=== PATIENT | female | born 2000 | race Caucasian/White ===

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

== ENCOUNTER 2019-07-31 14:27 | Emergency (ER) | payer BC, MEDICAID, OTHER ==
--- NOTE | 2019-07-31 15:04 | ER Document Report ---
ED Medical Screen (RME) - General Chief Complaint: Vaginal Bleeding Stated Complaint: VAGINAL BLEEDING Time Seen by Provider: 07/31/19 15:02 Primary Care Provider: AURELIANO LATHAM NP [Primary Care Provider] - Follow up as needed Mode of Arrival: Ambulatory Information source: Patient Notes: 18-year-old female presented to ED for complaint of vaginal bleeding. She stat es that she is also having some pelvic pain on right side. She states that. He is due in about a week. She states she does have a Nexplanon. She is concerned because the pain was on the one side. Patient is alert oriented respirations regular and unlabored speaking in full sentences. I have greeted and performed a rapid initial assessment of this patient. A comprehensive ED assessment and evaluation of the patient, analysis of test results and completion of medical decision making process will be conducted by an additional ED providers. TRAVEL OUTSIDE OF THE [place] IN LAST 30 DAYS: No - Related Data Allergies/Adverse Reactions: No Known Allergies Allergy (Verified 07/31/19 14:38) Past Medical History Psychiatric Medical History: Reports: Hx Attention Deficit Hyperactivity Disorder - Immunizations Immunizations up to date: Yes Hx Diphtheria, Pertussis, Tetanus Vaccination: Yes Doctor's Discharge - Discharge Referrals: AURELIANO LATHAM NP [Primary Care Provider] - Follow up as needed
[2019-07-31 15:05] VITALS: BP 139/79
--- NOTE | 2019-07-31 17:18 | RADIOLOGY REPORT (SQ) ---
EXAM DESCRIPTION: U/S NON-OB PELVIS TV W/O DOP COMPLETED DATE/TIME: 07/31/2019 4:58 pm REASON FOR STUDY: Right pelvic pain vaginal bleeding COMPARISON: None. TECHNIQUE: Dynamic and static grayscale images acquired of the pelvis via transvaginal approach and recorded on PACS. Additional selected color Doppler and spectral images recorded. LIMITATIONS: None. FINDINGS: UTERUS: Contour normal. No mass. ENDOMETRIAL STRIPE: No focal or generalized thickening. No masses. CERVIX: 2.1 cm. There is some fluid in the endocervical canal. RIGHT OVARY AND DOPPLER: Normal size. No worrisome masses. Normal arterial vascular flow without evid ence for torsion. LEFT OVARY AND DOPPLER: Ovary not seen. FREE FLUID: None noted. OTHER: No other significant finding. MEASUREMENTS: UTERUS: 5.4 x 2.5 cm. ENDOMETRIAL STRIPE: 4 mm. RIGHT OVARY: 2.7 x 2.2 x 2.2 cm. LEFT OVARY: Ovary not seen. IMPRESSION: NORMAL TRANSVAGINAL PELVIC ULTRASOUND. TECHNICAL DOCUMENTATION: JOB ID: [id number]- All Rights Reserved Rev-04/04 Reading location - IP/workstation name: [email or web address]
[2019-07-31 17:51] LABS: ABSOLUTE EOSINOPHILS # (AUTO) 0.2 10^3/uL (0.0-0.6); ABSOLUTE LYMPHOCYTES (AUTO) 4.7 10^3/uL (0.5-4.7); BASOPHILS % (AUTO) 0.4 % (0-2); EOSINOPHILS % (AUTO) 1.8 % (0-6); HEMATOCRIT 43.7 % (36.0-47.0); HEMOGLOBIN 14.4 g/dL (12.0-15.5); LYMPHOCYTES % (AUTO) 47.2 % (13-45); MEAN CORPUSCULAR HEMOGLOBIN 24.7 pg (27.0-33.4); MEAN CORPUSCULAR VOLUME 75 fl (80-97); MONOCYTES % (AUTO) 9.9 % (3-13); PLATELET COUNT 304 10^3/uL (150-450); RED BLOOD COUNT 5.84 10^6/uL (3.72-5.28); RED CELL DISTRIBUTION WIDTH 14.7 % (11.5-14.0); SEGMENTED NEUTROPHILS % (AUTO) 40.7 % (42-78); TOTAL CELLS COUNTED % (AUTO) 100 %; WHITE BLOOD COUNT 9.9 10^3/uL (4.0-10.5)
[2019-07-31 18:14] LABS: ALBUMIN 4.8 g/dL (3.5-5.0); ALKALINE PHOSPHATASE 88 U/L (38-126); ANION GAP 13 (5-19); ASPARTATE AMINO TRANSFERASE 24 U/L (14-36); BILIRUBIN,DIRECT 0.2 mg/dL (0.0-0.4); BILIRUBIN,TOTAL 0.3 mg/dL (0.2-1.3); BLOOD UREA NITROGEN 14 mg/dL (7-20); CALCIUM 9.6 mg/dL (8.4-10.2); CARBON DIOXIDE 25 mmol/L (22-30); CHLORIDE 104 mmol/L (98-107); GLUCOSE 89 mg/dL (75-110); POTASSIUM 4.3 mmol/L (3.6-5.0); TOTAL PROTEIN 8.3 g/dL (6.3-8.2)
--- NOTE | 2019-07-31 21:56 | ER Document Report ---
ED GI/ - General Chief Complaint: Vaginal Bleeding Stated Complaint: VAGINAL BLEEDING Time Seen by Provider: 07/31/19 15:02 Primary Care Provider: AURELIANO LATHAM NP [NURSE PRACTITIONER] - Follow up as needed Mode of Arrival: Ambulatory Notes: 18-year-old female presents to the emergency department with chief complaint of vaginal bleeding. She states that she is on the Nexplanon and started having spotting that was mild. Patient states that she also has right lower quadrant pain which is what concerned her bring her in. She denies fevers or chills, acute shortness of breath or chest pain, dizziness or weakness, nausea or vomiting, constipation or diarrhea, does complain of some urinary frequency but no dysuria urgency. TRAVEL OUTSIDE OF THE [place] IN LAST 30 DAYS: No - Related Data Allergies/Adverse Reactions: No Known Allergies Allergy (Verified 07/31/19 14:38) Past Medical History - General Information source: Patient - Social History Smoking Status: Unknown if Ever Smoked Family History: None Patient has suicidal ideation: No Patient has homicidal ideation: No Psychiatric Medical History: Reports: Hx Attention Deficit Hyperactivity Disorder - Immunizations Immunizations up to date: Yes Hx Diphtheria, Pertussis, Tetanus Vaccination: Yes Review of Systems - Review of Systems Constitutional: See HPI EENT: No symptoms reported Cardiovascular: See HPI Respiratory: See HPI Gastrointestinal: See HPI Genitourinary: See HPI Female Genitourinary: See HPI Musculoskeletal: Back pain Skin: No symptoms reported Hematologic/Lymphatic: No symptoms reported Neurological/Psychological: No symptoms reported Physical Exam - Vital signs Vitals: Temp Pulse BP Pulse Ox 98.6 F 72 139/79 H 100 07/31/19 15:03 07/31/19 15:03 07/31/19 15:03 07/31/19 15:03 - Notes Notes: PHYSICAL EXAMINATION: Reviewed vital signs and charting by RN GENERAL: Alert, interacts well. No acute distress. HEAD: Normocephalic, atraumatic. EYES: Pupils equal and round. Extraocular movements intact. ENT: Oral mucosa moist, tongue midline. NECK: Full range of motion. Trachea midline. LUNGS: Clear to auscultation bilaterally, no wheezes, rales, or rhonchi. No respiratory distress. HEART: Regular rate and rhythm. No murmur ABDOMEN: soft, right lower quadrant tenderness to palpation. No distention. Bowel sounds present EXTREMITIES: Moves all 4 extremities spontaneously. No edema, No cyanosis. PSYCH: Normal affect, normal mood. SKIN: Warm, dry, normal turgor. No rashes or lesions noted. Course - Re-evaluation Re-evalutation: 07/31/19 21:55 Well-appearing and nontoxic. Serum hCG negative. Urinalysis is pending. Transvaginal ultrasound done which visualize the right ovary and fallopian tube and there was no evidence of a torsion, left ovary not visualized but patient symptoms are on the right side so this is reassuring. There was some free fluid seen in the cul-de-sac so this could potentially represent a ruptured ovarian cyst. Once urine has resulted will dispo 07/31/19 22:51 No evidence of UTI. Work-up is reassuring. I explained results to patient and she agrees with plan. She is stable for discharge and given strict return precautions. - Vital Signs Vital signs: Temp Pulse Resp BP Pulse Ox 98.6 F 72 16 139/79 H 100 07/31/19 15:03 07/31/19 15:03 07/31/19 15:05 07/31/19 15:03 07/31/19 15:03 - Laboratory Result Diagrams: 07/31/19 17:21 07/31/19 17:21 Laboratory results interpreted by me: 07/31/19 07/31/19 07/31/19 17:21 17:21 21:56 RBC 5.84 H MCV 75 L MCH 24.7 L RDW 14.7 H Lymph % (Auto) 47.2 H Seg Neutrophils % 40.7 L Total Protein 8.3 H Urine Blood MODERATE H Ur Leukocyte Esterase TRACE H Discharge - Discharge Clinical Impression: Vaginal bleeding Low back pain Qualifiers: Chronicity: acute Back pain laterality: midline Sciatica presence: without sciatica Qualified Code(s): M54.5 - Low back pain Condition: Good Disposition: HOME, SELF-CARE Additional Instructions: You were seen today for dysfunctional uterine bleeding. You need to follow-up with [facility] or your primary care physician the next 1-3 days. Return immediately if you worsening pain, you began bleeding through more than 2 pads per hour for more than 3 hours, you pass out, have persistent vomiting, develop a fever greater than 101F, or any other symptoms that are concerning to you. Forms: Return to Work Referrals: AURELIANO LATHAM, [employer] [NURSE PRACTITIONER] - Follow up as needed
[2019-07-31 22:14] LABS: APPEARANCE,URINE SLIGHTLY-CLOUDY; BILIRUBIN,URINE NEGATIVE (NEGATIVE); COLOR,URINE YELLOW; GLUCOSE, URINE NEGATIVE (NEGATIVE); KETONES,URINE NEGATIVE (NEGATIVE); LEUKOCYTE ESTERASE,URINE TRACE (NEGATIVE); NITRITE,URINE NEGATIVE (NEGATIVE); PROTEIN,URINE NEGATIVE (NEGATIVE); URINE SPECIFIC GRAVITY 1.033; UROBILINOGEN,URINE NEGATIVE mg/dL (<2.0)
== END 2019-07-31 22:29 | disposition home or self-care (01) ==
LOC: ER 14:27
DX: N93.9 Abnormal uterine and vaginal bleeding, unspecified (principal); M54.5 Low back pain; R10.31 Right lower quadrant pain; R10.813 Right lower quadrant abdominal tenderness; R18.8 Other ascites; R35.0 Frequency of micturition; Z97.5 Presence of (intrauterine) contraceptive device
CPT/HCPCS: 36415; 76830; 80053; 81001; 83690; 84703; 85025; 99284

== ENCOUNTER 2019-10-10 22:49 | Emergency (ER) | payer MEDICAID ==
--- NOTE | 2019-10-10 23:56 | ER Document Report ---
ED ENT - General Chief Complaint: Sore Throat Stated Complaint: SORE THROAT/FEVER Time Seen by Provider: 10/10/19 23:56 Mode of Arrival: Ambulatory Information source: Patient Notes: 19-year-old woman presents to the emergency department with a complaint of sore throat, left ear pain, sinus pressure and pain with post nasal drainage. Symptoms began 3 days ago but have worsened over the past 24 hours. She complains of severe pain with swallowing and left ear pain and pressure. States that her head feels like it is about to burst and hearing feels that she is in a barrel. She has been using Tylenol cold and flu with little or no relief. Patient states that she has had a fever and has taken ibuprofen earlier. She also complains of cough which is nonproductive. TRAVEL OUTSIDE OF THE [place] IN LAST 30 DAYS: No - Related Data Allergies/Adverse Reactions: No Known Allergies Allergy (Verified 07/31/19 14:38) Past Medical History - Social History Smoking Status: Never Smoker Chew tobacco use (# tins/day): No Frequency of alcohol use: None Drug Abuse: None Family History: None Patient has suicidal ideation: No Patient has homicidal ideation: No Psychiatric Medical History: Reports: Hx Attention Deficit Hyperactivity Disorder - Immunizations Immunizations up to date: Yes Hx Diphtheria, Pertussis, Tetanus Vaccination: Yes Review of Systems - Review of Systems Notes: Constitutional: +fever. HEENT: + Sore throat, + left ear pain, + sinus pain Cardiovascular: Negative for chest pain. Respiratory: + Cough Gastrointestinal: Negative for vomiting Musculoskeletal: Negative for back pain. Skin: Negative for rash. Neurological: Negative for weakness or numbness. 10 point ROS negative except as marked above and in HPI. Physical Exam - Vital signs Vitals: Temp Pulse Resp BP Pulse Ox 98.4 F 96 16 134/78 H 97 10/10/19 22:54 10/10/19 22:54 10/10/19 22:54 10/10/19 22:54 10/10/19 22:54 - Notes Notes: PHYSICAL EXAMINATION: GENERAL: Ill appearing 19-year-old in no acute distress. HEAD: Atraumatic, normocephalic. Tenderness along the maxillary sinuses right greater than left EYES: Pupils equal round and reactive to light, extraocular movements intact, sclera anicteric, conjunctiva are normal. ENT: nares patent, oropharynx posterior pharyngeal erythema with tonsillar pillars are swollen and touching in the midline, no exudate airway is patent. Moist mucous membranes. Left TM is dull with poor landmarks, mild erythema across the mid tympanic membrane area, right tympanic membrane is clear NECK: Bilateral anterior cervical lymphadenopathy, no stiffness LUNGS: Breath sounds clear to auscultation bilaterally and equal. No wheezes rales or rhonchi. HEART: Regular rate and rhythm without murmurs ABDOMEN: Soft, nontender, normoactive bowel sounds. No guarding, no rebound. N o masses appreciated. EXTREMITIES: Normal range of motion, no pitting or edema. No cyanosis. NEUROLOGICAL: No focal neurological deficits. Moves all extremities spontaneously and on command. PSYCH: Normal mood, normal affect. SKIN: Warm, Dry, normal turgor, no rashes or lesions noted. Course - Re-evaluation Re-evalutation: 10/11/19 01:11 19-year-old female presents to the emergency department with sore throat and upper respiratory tract symptoms. Diagnosed with pharyngitis and left otitis sinusitis, the patient is being treated with antibiotics and short course of a steroid . I have informed her that their rapid strep test was negative. She is given a dose of Rocephin 1 g in the emergency department, discharged with amoxicillin 500 mg 3 times daily and prednisone 20 mg p.o. twice daily x5 days. I discussed that plan with the patient she is agreeable and will be discharged after an appropriate waiting. - Vital Signs Vital signs: Temp Pulse Resp BP Pulse Ox 98.4 F 96 16 134/78 H 97 10/10/19 22:54 10/10/19 22:54 10/10/19 22:54 10/10/19 22:54 10/10/19 22:54 - Laboratory Laboratory results interpreted by me: Rapid strep negative. Discharge - Discharge Clinical Impression: Acute pharyngitis Qualifiers: Pharyngitis/tonsillitis etiology: unspecified etiology Qualified Code(s): J02.9 - Acute pharyngitis, unspecified Left otitis media Qualifiers: Otitis media type: unspecified Qualified Code(s): H66.92 - Otitis media, unspecified, left ear Acute sinusitis Qualifiers: Sinusitis location: maxillary Recurrence: not specified as recurrent Qualified Code(s): J01.00 - Acute maxillary sinusitis, unspecified Condition: Stable Disposition: HOME, SELF-CARE Instructions: Otitis Media ([facility]), Sinusitis ([facility]), Sore Throat ([facility]) Additional Instructions: Please take the medication as prescribed amoxicillin 500 mg 3 times a day and prednisone 20 mg twice daily for 5 days. Follow-up with your primary care doctor if your symptoms are worsening or not improving. May return to the emergency department if needed. Prescriptions: Amoxicillin 1 tab PO TID #30 tab Prednisone [Deltasone 20 mg Tablet] 1 tab PO BID 5 Days #10 tablet
[2019-10-11] MEDS ORDERED: IBUPROFEN 600 MG TABLET PO ONE (00:09)
[2019-10-11] MEDS ORDERED: CEFTRIAXONE INJ 1000 MG VIAL IM ONE (01:19)
[2019-10-11 01:44] VITALS: BP 113/69
== END 2019-10-11 01:44 | disposition home or self-care (01) ==
LOC: ER 22:49
DX: J02.9 Acute pharyngitis, unspecified (principal); J01.00 Acute maxillary sinusitis, unspecified; H66.92 Otitis media, unspecified, left ear; H92.02 Otalgia, left ear; R09.82 Postnasal drip
CPT/HCPCS: 99283; 96372; 87070; 87880; J3490; J0696

== ENCOUNTER 2019-11-21 21:59 | Emergency (ER) | payer MEDICAID ==
--- NOTE | 2019-11-21 23:27 | ER Document Report ---
ED Medical Screen (RME) - General Chief Complaint: Lower Abdominal Pain Stated Complaint: ABDOMINAL PAIN Time Seen by Provider: 11/21/19 23:23 Mode of Arrival: Ambulatory Information source: Patient Notes: Patient presents complaining of lower pelvic pain for the past 3 days. Patient denies any nausea vomiting or diarrhea. Patient reports some mild urinary frequency. I have greeted and performed a rapid initial assessment of this patient. A comprehensive ED assessment and evaluation of the patient, analysis of test results and completion of the medical decision making process will be conducted by additional ED providers. TRAVEL OUTSIDE OF THE [place] IN LAST 30 DAYS: No - Related Data Allergies/Adverse Reactions: No Known Allergies Allergy (Verified 11/21/19 23:17) Home Medications: Nexplanon Past Medical History Psychiatric Medical History: Reports: Hx Attention Deficit Hyperactivity Disorder - Immunizations Immunizations up to date: Yes Hx Diphtheria, Pertussis, Tetanus Vaccination: Yes Physical Exam - Vital signs Vitals: Temp Pulse Resp BP Pulse Ox 98.9 F 90 20 120/96 H 99 11/21/19 22:08 11/21/19 22:08 11/21/19 22:08 11/21/19 22:08 11/21/19 22:08 - Abdominal Tenderness: Tender - Lower pelvic Course - Vital Signs Vital signs: Temp Pulse Resp BP Pulse Ox 98.9 F 90 20 120/96 H 99 11/21/19 22:08 11/21/19 22:08 11/21/19 22:08 11/21/19 22:08 11/21/19 22:08
--- NOTE | 2019-11-22 01:03 | RADIOLOGY REPORT (SQ) ---
EXAM DESCRIPTION: US PELVIS TRANSVAGINAL COMPLETED DATE/TME: 11/21/2019 23:26 CLINICAL HISTORY: 19 years Female, pelvic pain Comparison:Jul 31 2019 Technique: Transvaginal. LIMITATIONS: None. FINDINGS: 7-cm uterus, 0.7-cm endometrial stripe thickness, 2.6 x 1.4 x 1.6-cm right ovary, and 4.2 x 2.2 x 3.9-cm left ovary containing a hypoechoic mildly complex avascular 3.0 x 1.8 x 2.8 cm ovoid lesion appear otherwise unremarkable in size, shape, echotexture, and vascularity. No free fluid. IMPRESSION: Indeterminate probably benign 3.0 cm left adnexal lesion may indicate a hemorrhagic cyst, endometrioma, or dermoid/neoplasm. Recommend ultrasound follow-up in 6-12 weeks.
[2019-11-22 01:05] LABS: ABSOLUTE EOSINOPHILS # (AUTO) 0.1 10^3/uL (0.0-0.6); ABSOLUTE MONOCYTES (AUTO) 1.1 10^3/uL (0.1-1.4); ABSOLUTE NEUT (AUTO) 5.8 10^3/uL (1.7-8.2); BASOPHILS % (AUTO) 0.3 % (0-2); EOSINOPHILS % (AUTO) 1.3 % (0-6); HEMATOCRIT 40.3 % (36.0-47.0); HEMOGLOBIN 13.3 g/dL (12.0-15.5); LYMPHOCYTES % (AUTO) 36.3 % (13-45); MEAN CORPUSCULAR HGB CONC 32.9 g/dL (32.0-36.0); MEAN CORPUSCULAR VOLUME 76 fl (80-97); MONOCYTES % (AUTO) 9.9 % (3-13); PLATELET COUNT 273 10^3/uL (150-450); RED BLOOD COUNT 5.32 10^6/uL (3.72-5.28); RED CELL DISTRIBUTION WIDTH 14.1 % (11.5-14.0); SEGMENTED NEUTROPHILS % (AUTO) 52.2 % (42-78); TOTAL CELLS COUNTED % (AUTO) 100 %; WHITE BLOOD COUNT 11.1 10^3/uL (4.0-10.5)
[2019-11-22 01:09] LABS: APPEARANCE,URINE CLEAR; BILIRUBIN,URINE NEGATIVE (NEGATIVE); COLOR,URINE YELLOW; GLUCOSE, URINE NEGATIVE (NEGATIVE); KETONES,URINE NEGATIVE (NEGATIVE); LEUKOCYTE ESTERASE,URINE NEGATIVE (NEGATIVE); NITRITE,URINE NEGATIVE (NEGATIVE); PROTEIN,URINE NEGATIVE (NEGATIVE); URINE SPECIFIC GRAVITY 1.029; UROBILINOGEN,URINE NEGATIVE mg/dL (<2.0)
[2019-11-22 01:19] LABS: ANION GAP 11 (5-19); BLOOD UREA NITROGEN 15 mg/dL (7-20); CALCIUM 9.5 mg/dL (8.4-10.2); CARBON DIOXIDE 23 mmol/L (22-30); CHLORIDE 109 mmol/L (98-107); GLUCOSE 103 mg/dL (75-110); POTASSIUM 3.8 mmol/L (3.6-5.0)
[2019-11-22 04:50] LABS: CHLAM PCR NOT DETECTED (NOT DETECT)
[2019-11-22 05:03] VITALS: BP 127/67
--- NOTE | 2019-11-22 05:16 | ER Document Report ---
ED GI/ - General Chief Complaint: Lower Abdominal Pain Stated Complaint: ABDOMINAL PAIN Time Seen by Provider: 11/21/19 23:23 Primary Care Provider: [facility] [Provider Group] - Follow up in 3-5 days Mode of Arrival: Ambulatory Notes: Patient is a 19-year-old female that comes emergency department for chief complaint of intermittently very sharp pain in the pelvis that is been going on for the past 3 days. She denies vaginal bleeding, vaginal discharge, dysuria, fever, vomiting. She does report history of ovarian cysts and states this feels similar. She has the Implanon in place. She denies daily medications or medical history otherwise. She denies concerns of STI. TRAVEL OUTSIDE OF THE [place] IN LAST 30 DAYS: No - Related Data Allergies/Adverse Reactions: No Known Allergies Allergy (Verified 11/21/19 23:17) Home Medications: Nexplanon Past Medical History - General Information source: Patient - Social History Smoking Status: Never Smoker Frequency of alcohol use: None Drug Abuse: None Lives with: Family Family History: None Patient has suicidal ideation: No Patient has homicidal ideation: No Renal/ Medical History: Reports: Hx Ovarian Cysts Psychiatric Medical History: Reports: Hx Attention Deficit Hyperactivity Disorder - Immunizations Immunizations up to date: Yes Hx Diphtheria, Pertussis, Tetanus Vaccination: Yes Review of Systems - Review of Systems Constitutional: No symptoms reported EENT: No symptoms reported Cardiovascular: No symptoms reported Respiratory: No symptoms reported Gastrointestinal: See HPI Genitourinary: See HPI Female Genitourinary: See HPI Musculoskeletal: No symptoms reported Skin: No symptoms reported Hematologic/Lymphatic: No symptoms reported Neurological/Psychological: No symptoms reported Physical Exam - Vital signs Vitals: Temp Pulse Resp BP Pulse Ox 98.9 F 90 20 120/96 H 99 11/21/19 22:08 11/21/19 22:08 11/21/19 22:08 11/21/19 22:08 11/21/19 22:08 - Notes Notes: GENERAL: Alert, interacts well. No acute distress. HEAD: Normocephalic, atraumatic. EYES: Pupils equal, round, and reactive to light. Extraocular movements intact. ENT: Oral mucosa moist, tongue midline. Oropharynx unremarkable. Airway patent. LUNGS: Clear to auscultation bilaterally, no wheezes, rales, or rhonchi. No respiratory distress. HEART: Regular rate and rhythm. No murmur ABDOMEN: Soft, non-tender. Non-distended. Bowel sounds present in all 4 quadrants. No guarding or rigidity GENITOURINARY: Deferred EXTREMITIES: Moves all 4 extremities spontaneously. No edema, normal radial and dorsalis pedis pulses bilaterally. No cyanosis. BACK: no cervical, thoracic, lumbar midline tenderness. No saddle anesthesia, normal distal neurovascular exam. Moves all extremities in full range of motion. NEUROLOGICAL: Alert and oriented x3. Normal speech. Cranial nerves II through XII grossly intact. PSYCH: Normal affect, normal mood. SKIN: Warm, dry, normal turgor. No rashes or lesions noted. Course - Re-evaluation Re-evalutation: When I entered the room patient immediately stated that she felt much better now than she did earlier she is requesting to be discharged. She declines pelvic exam. Gonorrhea and Chlamydia negative from urine. CBC, chemistry unremarkable, test negative. Urinalysis unremarkable. Ultrasound showing abnormal area on the left ovary which is most likely hemorrhagic cyst but could be other concerning abnormality and should be rechecked. I discussed at length with patient. Provided symptom management, discussed importance of follow-up because of possible dermoid versus cancerous tissue which is extremely important to be followed, patient states full understanding and agreement, discussed return precautions. Patient states understanding and agreement. Stable at time of discharge. - Vital Signs Vital signs: Temp Pulse Resp BP Pulse Ox 98.3 F 80 16 127/67 H 100 11/22/19 05:03 11/22/19 05:03 11/22/19 05:03 11/22/19 05:03 11/22/19 05:03 - Laboratory Result Diagrams: 11/22/19 00:52 11/22/19 00:52 Laboratory results interpreted by me: 11/22/19 11/22/19 00:52 00:52 WBC 11.1 H RBC 5.32 H MCV 76 L MCH 25.0 L RDW 14.1 H Chloride 109 H Discharge - Discharge Clinical Impression: Pelvic pain Condition: Stable Disposition: HOME, SELF-CARE Additional Instructions: Your work-up appears to show a hemorrhagic cyst on your left ovary, this is most likely the cause of your pain. This should resolve with time, however there is a possibility that this is something more serious and could even be abnormal developing tissue which if left alone could become cancerous. It is very important that you obtain a 6-12 week follow-up ultrasound to make sure that this resolves and does not need additional management. Call the listed referral. You can combine the provided medications for pain if needed. Return for any concerning symptoms including severe worsening pain, fever, vomiting, etc. Prescriptions: Ibuprofen [Ibu] 800 mg PO TID PRN #30 tablet PRN Reason: Hydrocodone/Acetaminophen [Saxon 5-325 mg Tablet] 1 - 2 tab PO ASDIR PRN #12 tablet PRN Reason: Referrals: [facility] [Provider Group] - Follow up in 3-5 days
== END 2019-11-22 05:18 | disposition home or self-care (01) ==
LOC: ER 21:59
DX: R10.2 Pelvic and perineal pain (principal); R10.30 Lower abdominal pain, unspecified
CPT/HCPCS: 36415; 76830; 80048; 81001; 84703; 85025; 87491; 87591; 93976; 99284

== ENCOUNTER 2019-11-27 12:53 | Emergency (ER) | payer MEDICAID ==
--- NOTE | 2019-11-27 13:05 | ER Document Report ---
ED Medical Screen (RME) - General Chief Complaint: Hand Pain Stated Complaint: LEFT HAND PAIN/NUMBNESS Time Seen by Provider: 11/27/19 13:02 TRAVEL OUTSIDE OF THE [place] IN LAST 30 DAYS: No - HPI Notes: 11/27/19 13:04 Patient is a 19-year-old female who presents complaining of left thumb pain, swelling, redness over the past day without known injury. Patient does not recall getting bit by anything in the area or having any break to the skin. Patient states that movement makes the pain worse. Denies fever. Pain does radiate into the distal thumb and feels numbness distally. I have treated and performed a rapid initial assessment of this patient. A comprehensive ED assessment and evaluation of the patient, analysis of test results and completion of medical decision making process will be conducted by additional ED providers. PHYSICAL EXAMINATION: GENERAL: Well-appearing, well-nourished and in no acute distress. A&Ox4. Answers questions appropriately. Left thumb: There is noted erythema, induration, tenderness to the proximal left thumb anterolateral. Patient does have increased pain when I try to straighten her thumb as well at the IP joint. - Related Data Allergies/Adverse Reactions: No Known Allergies Allergy (Verified 11/27/19 12:57) Past Medical History Renal/ Medical History: Reports: Hx Ovarian Cysts Psychiatric Medical History: Reports: Hx Attention Deficit Hyperactivity Disorder - Immunizations Immunizations up to date: Yes Hx Diphtheria, Pertussis, Tetanus Vaccination: Yes Physical Exam - Vital signs Vitals: Temp Pulse Resp BP Pulse Ox 98.6 F 82 16 129/82 H 100 11/27/19 12:58 11/27/19 12:58 11/27/19 12:58 11/27/19 12:58 11/27/19 12:58 Course - Vital Signs Vital signs: Temp Pulse Resp BP Pulse Ox 98.6 F 82 16 129/82 H 100 11/27/19 12:58 11/27/19 12:58 11/27/19 12:58 11/27/19 12:58 11/27/19 12:58
[2019-11-27 13:24] LABS: ABSOLUTE EOSINOPHILS # (AUTO) 0.1 10^3/uL (0.0-0.6); ABSOLUTE LYMPHOCYTES (AUTO) 2.9 10^3/uL (0.5-4.7); ABSOLUTE MONOCYTES (AUTO) 0.7 10^3/uL (0.1-1.4); ABSOLUTE NEUT (AUTO) 4.8 10^3/uL (1.7-8.2); BASOPHILS % (AUTO) 0.3 % (0-2); EOSINOPHILS % (AUTO) 1.1 % (0-6); HEMATOCRIT 42.1 % (36.0-47.0); HEMOGLOBIN 14.1 g/dL (12.0-15.5); LYMPHOCYTES % (AUTO) 34.4 % (13-45); MEAN CORPUSCULAR HEMOGLOBIN 25.8 pg (27.0-33.4); MEAN CORPUSCULAR HGB CONC 33.6 g/dL (32.0-36.0); MEAN CORPUSCULAR VOLUME 77 fl (80-97); MONOCYTES % (AUTO) 7.7 % (3-13); PLATELET COUNT 262 10^3/uL (150-450); RED BLOOD COUNT 5.49 10^6/uL (3.72-5.28); RED CELL DISTRIBUTION WIDTH 14.2 % (11.5-14.0); SEGMENTED NEUTROPHILS % (AUTO) 56.5 % (42-78); TOTAL CELLS COUNTED % (AUTO) 100 %; WHITE BLOOD COUNT 8.6 10^3/uL (4.0-10.5)
[2019-11-27 13:57] LABS: ALBUMIN 4.6 g/dL (3.5-5.0); ALKALINE PHOSPHATASE 81 U/L (38-126); ANION GAP 13 (5-19); ASPARTATE AMINO TRANSFERASE 24 U/L (14-36); BILIRUBIN,DIRECT 0.3 mg/dL (0.0-0.4); BILIRUBIN,TOTAL 0.4 mg/dL (0.2-1.3); BLOOD UREA NITROGEN 14 mg/dL (7-20); CALCIUM 9.6 mg/dL (8.4-10.2); CARBON DIOXIDE 21 mmol/L (22-30); CHLORIDE 106 mmol/L (98-107); GLUCOSE 89 mg/dL (75-110); POTASSIUM 4.4 mmol/L (3.6-5.0); TOTAL PROTEIN 8.6 g/dL (6.3-8.2)
--- NOTE | 2019-11-27 13:59 | RADIOLOGY REPORT (SQ) ---
EXAM DESCRIPTION: HAND LEFT 3 VIEWS COMPLETED DATE/TIME: 11/27/2019 1:43 pm REASON FOR STUDY: left thumb pain/swelling COMPARISON: None. EXAM PARAMETERS: NUMBER OF VIEWS: Three views. TECHNIQUE: AP, lateral and oblique radiographic images acquired of the left hand. LIMITATIONS: None. FINDINGS: MINERALIZATION: Normal. BONES: No acute fracture or dislocation. JOINTS: No periarticular osteopenia or erosion. SOFT TISSUES: No soft tissue swelling or radiopaque foreign body. OTHER: No other finding. IMPRESSION: No acute osseous abnormality of the left hand. TECHNICAL DOCUMENTATION: JOB ID: [id number] [employer]- All Rights Reserved Reading location - IP/workstation name: [email or web address]
[2019-11-27] MEDS ORDERED: AMPICILLIN SOD/SULBACTAM 3 GM VIAL IV ONE (14:45)
--- NOTE | 2019-11-27 14:54 | ER Document Report ---
ED Hand/Wrist Injury - General Chief Complaint: Hand Injury Stated Complaint: LEFT HAND PAIN/NUMBNESS Time Seen by Provider: 11/27/19 13:02 Primary Care Provider: ELIJAH ESGOVIA MD [Primary Care Provider] - Follow up as needed YOAV STEPHEN JR, DO [ACTIVE PROVISIONAL STAFF] - Follow up as needed Mode of Arrival: Ambulatory Information source: Patient Notes: Patient presents with a 2-day history of left thumb pain. Patient states that the area gradually started to become swollen and erythematous. Patient denies any fever. Patient is right-hand dominant. Patient denies any known injury to the hand. Patient states she does have a cat that has been scratching her on both of her hands. Patient denies any cat bite to the hands. Patient reports her tetanus immunization is currently up-to-date. TRAVEL OUTSIDE OF THE [place] IN LAST 30 DAYS: No - HPI Injury to: Thumb Onset: Other - 2 days Timing: Worse Quality of pain: Sharp Pain Level: 4 Context: Swelling - Related Data Allergies/Adverse Reactions: No Known Allergies Allergy (Verified 11/27/19 12:57) Past Medical History - General Information source: Patient - Social History Smoking Status: Never Smoker Frequency of alcohol use: None Drug Abuse: None Occupation: [employer] service Lives with: Family Family History: None Patient has suicidal ideation: No Patient has homicidal ideation: No Renal/ Medical History: Reports: Hx Ovarian Cysts Psychiatric Medical History: Reports: Hx Attention Deficit Hyperactivity Disorder Surgical Hx: Negative - Immunizations Immunizations up to date: Yes Hx Diphtheria, Pertussis, Tetanus Vaccination: Yes Review of Systems - Review of Systems Constitutional: No symptoms reported. denies: Fever, Recent illness EENT: No symptoms reported Cardiovascular: No symptoms reported Respiratory: No symptoms reported Gastrointestinal: No symptoms reported. denies: Vomiting Genitourinary: No symptoms reported Female Genitourinary: No symptoms reported Musculoskeletal: Joint pain - Left thumb tenderness, swelling and redness Skin: Change in color - Redness to left thumb Hematologic/Lymphatic: No symptoms reported Neurological/Psychological: No symptoms reported Physical Exam - Vital signs Vitals: Temp Pulse Resp BP Pulse Ox 98.6 F 82 16 129/82 H 100 11/27/19 12:58 11/27/19 12:58 11/27/19 12:58 11/27/19 12:58 11/27/19 12:58 - General General appearance: Appears well, Alert In distress: None - HEENT Head: Normocephalic, Atraumatic Eyes: Normal Conjunctiva: Normal Nasal: Normal Mouth/Lips: Normal Mucous membranes: Normal Neck: Normal, Supple. No: Lymphadenopathy - Respiratory Respiratory status: No respiratory distress Chest status: Nontender Breath sounds: Normal. No: Rales, Rhonchi, Stridor, Wheezing Chest palpation: Normal - Cardiovascular Rhythm: Regular Heart sounds: S1 appreciated, S2 appreciated Pulses: Normal: Radial - Back Back: Normal - Extremities General upper extremity: Tender - left thumb General lower extremity: Normal inspection, Normal ROM Hand: Tender - Patient with left hand tenderness to the MCP joint of the left thumb with overlying erythema and swelling. Patient with exquisite tenderness with palpation, patient guards with range of motion. Tenderness increases with extension. Patient with multiple abrasions to bilateral hands. - Neurological Neuro grossly intact: Yes Cognition: Normal Orientation: AAOx4 [place] Coma Scale Eye Opening: Spontaneous [place] Coma Scale Verbal: Oriented [place] Coma Scale Motor: Obeys Commands [place] Coma Scale Total: 15 - Psychological Associated symptoms: Normal affect, Normal mood - Skin Skin Temperature: Warm Skin Moisture: Dry Skin Color: Erythema - Patient with erythema and calor to the left MCP joint of the thumb. Patient with multiple abrasions to bilateral hands. Course - Re-evaluation Re-evalutation: 11/27/19 14:51 Call placed for consultation with orthopedic doctor, mill control operator left message for return call. 11/27/19 15:[address] Stephen regarding patient presentation and evaluation. Recommends giving a dose of IV Unasyn and placing patient on a 10-day course of Augmentin to go home. Advises giving good return precautions that patient should return immediately for. Does not feel that patient needs admission at this time based on reported exam findings. 11/27/19 15:13 Discussed plan of care with patient, patient verbalized understanding and is agreeable with this plan of care. Patient does not feel that she had a cat bite but only feels that she received a cat scratch to the hand. No concern for septic arthritis at this time. Will treat for cellulitis of the hand. Patient advised to return immediately for any increased pain, redness, fever or any lack of improvement. - Vital Signs Vital signs: Temp Pulse Resp BP Pulse Ox 98.0 F 62 16 127/63 H 100 11/27/19 16:56 11/27/19 16:56 11/27/19 16:56 11/27/19 16:56 11/27/19 16:56 - Laboratory Result Diagrams: 11/27/19 13:15 11/27/19 13:15 Laboratory results interpreted by me: 11/27/19 11/27/19 13:15 13:15 RBC 5.49 H MCV 77 L MCH 25.8 L RDW 14.2 H Carbon Dioxide 21 L Total Protein 8.6 H 11/27/19 15:09 Labs- Last Values WBC 8.6 10^3/uL (4.0-10.5) 11/27/19 13:15 RBC 5.49 10^6/uL (3.72-5.28) H 11/27/19 13:15 Hgb 14.1 g/dL (12.0-15.5) 11/27/19 13:15 Hct 42.1 % (36.0-47.0) 11/27/19 13:15 MCV 77 fl (80-97) L 11/27/19 13:15 MCH 25.8 pg (27.0-33.4) L 11/27/19 13:15 MCHC 33.6 g/dL (32.0-36.0) 11/27/19 13:15 RDW 14.2 % (11.5-14.0) H 11/27/19 13:15 Plt Count 262 10^3/uL (150-450) 11/27/19 13:15 Lymph % (Auto) 34.4 % (13-45) 11/27/19 13:15 [place] % (Auto) 7.7 % (3-13) 11/27/19 13:15 Eos % (Auto) 1.1 % (0-6) 11/27/19 13:15 Baso % (Auto) 0.3 % (0-2) 11/27/19 13:15 Absolute Neuts (auto) 4.8 10^3/uL (1.7-8.2) 11/27/19 13:15 Absolute Lymphs (auto) 2.9 10^3/uL (0.5-4.7) 11/27/19 13:15 Absolute Monos (auto) 0.7 10^3/uL (0.1-1.4) 11/27/19 13:15 Absolute Eos (auto) 0.1 10^3/uL (0.0-0.6) 11/27/19 13:15 Absolute Basos (auto) 0.0 10^3/uL (0.0-0.2) 11/27/19 13:15 Seg Neutrophils % 56.5 % (42-78) 11/27/19 13:15 Sodium 139.9 mmol/L (137-145) 11/27/19 13:15 Potassium 4.4 mmol/L (3.6-5.0) 11/27/19 13:15 Chloride 106 mmol/L (98-107) 11/27/19 13:15 Carbon Dioxide 21 mmol/L (22-30) L 11/27/19 13:15 Anion Gap 13 (5-19) 11/27/19 13:15 BUN 14 mg/dL (7-20) 11/27/19 13:15 Creatinine 0.84 mg/dL (0.52-1.25) 11/27/19 13:15 Est GFR ( Amer) > 60 (>60) 11/27/19 13:15 Est GFR (MDRD) Non-Af > 60 (>60) 11/27/19 13:15 Glucose 89 mg/dL (75-110) 11/27/19 13:15 Calcium 9.6 mg/dL (8.4-10.2) 11/27/19 13:15 Total Bilirubin 0.4 mg/dL (0.2-1.3) 11/27/19 13:15 Direct Bilirubin 0.3 mg/dL (0.0-0.4) 11/27/19 13:15 Neonat Total Bilirubin Not Reportable 11/27/19 13:15 Neonat Direct Bilirubin Not Reportable 11/27/19 13:15 Neonat Indirect Bili Not Reportable 11/27/19 13:15 AST 24 U/L (14-36) 11/27/19 13:15 ALT 15 U/L (<35) 11/27/19 13:15 Alkaline Phosphatase 81 U/L (38-126) 11/27/19 13:15 Total Protein 8.6 g/dL (6.3-8.2) H 11/27/19 13:15 Albumin 4.6 g/dL (3.5-5.0) 11/27/19 13:15 - Diagnostic Test Radiology reviewed: Reports reviewed Discharge - Discharge Clinical Impression: Cellulitis of hand Cat scratch of hand Qualifiers: Encounter type: initial encounter Laterality: left Qualified Code(s): S60.512A - Abrasion of left hand, initial encounter Condition: Stable Disposition: HOME, SELF-CARE Instructions: Antibiotic Therapy ([facility]), Augmentin ([facility]), Cellulitis ([facility]), IV Antibiotics ([facility]) Additional Instructions: Return immediately for any new or worsening symptoms: Fever, increased redness, increased pain, lack of improvement or any new or worsening symptoms Followup with your primary care provider, call tomorrow to make a followup appointment Take your Motrin and your pain medication that you have at home as prescribed Follow-up with orthopedics as needed Prescriptions: Amox Tr/Potassium Clavulanate [Augmentin 875-125 Tablet] 1 tab PO BID 10 Days tablet Referrals: ELIJAH SEGOVIA MD [Primary Care Provider] - Follow up as needed YOAV STEPHEN JR, DO [ACTIVE PROVISIONAL STAFF] - Follow up as needed
[2019-11-27] MEDS ORDERED: KETOROLAC TROMETHAMINE INJ/PF 30 MG/1 ML SDV IV ONE (15:08)
[2019-11-27 17:02] VITALS: BP 127/63
== END 2019-11-27 17:03 | disposition home or self-care (01) ==
LOC: ER 12:53
DX: L03.119 Cellulitis of unspecified part of limb (principal); S60.512A Abrasion of left hand, initial encounter; S60.511A Abrasion of right hand, initial encounter; W55.03XA Scratched by cat, initial encounter
CPT/HCPCS: 99283; 96375; 96365; 36415; 87040; 85025; 80053; 73130; J0295; J1885

== ENCOUNTER 2019-11-28 16:20 | Inpatient (IN) | payer MEDICAID ==
[2019-11-28] MEDS ORDERED: AMPICILLIN SOD/SULBACTAM 3 GM VIAL IV ONE (16:56)
--- NOTE | 2019-11-28 16:58 | ER Document Report ---
ED Medical Screen (RME) - General Chief Complaint: Hand Swelling Stated Complaint: CELLULITIS/HAND PAIN Time Seen by Provider: 11/28/19 16:54 Primary Care Provider: ELIJAH SEGOVIA MD [Primary Care Provider] - Follow up as needed TRAVEL OUTSIDE OF THE [place] IN LAST 30 DAYS: No - HPI Notes: 11/28/19 16:57 Patient is a 19-year-old female who presents complaining of left thumb pain, swelling, redness over the past couple days without known injury. Patient does not recall getting bit by anything in the area or having any break to the skin. Patient states that movement makes the pain worse. She was eval'd yesterday and sent home on antibiotics after dose of IV unasyn. Ortho was consulted at that time. Denies fever. I have treated and performed a rapid initial assessment of this patient. A comprehensive ED assessment and evaluation of the patient, analysis of test results and completion of medical decision making process will be conducted by additional ED providers. PHYSICAL EXAMINATION: GENERAL: Well-appearing, well-nourished and in no acute distress. A&Ox4. Answers questions appropriately. Left thumb: There is noted erythema, induration, tenderness to the proximal left thumb anterolateral. Patient does have increased pain when I try to straighten her thumb as well at the IP joint. The erythema does extend beyond the previously marked area. - Related Data Allergies/Adverse Reactions: No Known Allergies Allergy (Verified 11/27/19 12:57) Past Medical History Renal/ Medical History: Reports: Hx Ovarian Cysts Psychiatric Medical History: Reports: Hx Attention Deficit Hyperactivity Disorder - Immunizations Immunizations up to date: Yes Hx Diphtheria, Pertussis, Tetanus Vaccination: Yes Physical Exam - Vital signs Vitals: Temp Pulse Resp BP Pulse Ox 98.3 F 85 16 134/81 H 97 11/28/19 16:33 11/28/19 16:33 11/28/19 16:33 11/28/19 16:33 11/28/19 16:33 Course - Vital Signs Vital signs: Temp Pulse Resp BP Pulse Ox 98.3 F 85 16 134/81 H 97 11/28/19 16:33 11/28/19 16:33 11/28/19 16:33 11/28/19 16:33 11/28/19 16:33 Doctor's Discharge - Discharge Referrals: ELIJAH SEGOVIA MD [Primary Care Provider] - Follow up as needed
[2019-11-28 17:47] LABS: ABSOLUTE EOSINOPHILS # (AUTO) 0.1 10^3/uL (0.0-0.6); ABSOLUTE LYMPHOCYTES (AUTO) 2.7 10^3/uL (0.5-4.7); ABSOLUTE MONOCYTES (AUTO) 0.9 10^3/uL (0.1-1.4); ABSOLUTE NEUT (AUTO) 4.7 10^3/uL (1.7-8.2); BASOPHILS % (AUTO) 0.4 % (0-2); EOSINOPHILS % (AUTO) 1.5 % (0-6); HEMATOCRIT 38.4 % (36.0-47.0); HEMOGLOBIN 13.2 g/dL (12.0-15.5); MEAN CORPUSCULAR HGB CONC 34.3 g/dL (32.0-36.0); MEAN CORPUSCULAR VOLUME 76 fl (80-97); MONOCYTES % (AUTO) 10.7 % (3-13); PLATELET COUNT 266 10^3/uL (150-450); RED BLOOD COUNT 5.06 10^6/uL (3.72-5.28); SEGMENTED NEUTROPHILS % (AUTO) 55.4 % (42-78); TOTAL CELLS COUNTED % (AUTO) 100 %; WHITE BLOOD COUNT 8.5 10^3/uL (4.0-10.5)
[2019-11-28] MEDS ORDERED: MORPHINE SULFATE 10 MG/ML INJ IV ONE (17:50)
[2019-11-28 18:00] LABS: ALBUMIN 4.4 g/dL (3.5-5.0); ALKALINE PHOSPHATASE 71 U/L (38-126); ANION GAP 11 (5-19); ASPARTATE AMINO TRANSFERASE 21 U/L (14-36); BILIRUBIN,DIRECT 0.2 mg/dL (0.0-0.4); BILIRUBIN,TOTAL 0.4 mg/dL (0.2-1.3); BLOOD UREA NITROGEN 11 mg/dL (7-20); CALCIUM 9.7 mg/dL (8.4-10.2); CARBON DIOXIDE 22 mmol/L (22-30); CHLORIDE 108 mmol/L (98-107); GLUCOSE 85 mg/dL (75-110); POTASSIUM 3.7 mmol/L (3.6-5.0); TOTAL PROTEIN 8.1 g/dL (6.3-8.2)
--- NOTE | 2019-11-28 18:03 | ER Document Report ---
ED General - General Chief Complaint: Hand Swelling Stated Complaint: CELLULITIS/HAND PAIN Time Seen by Provider: 11/28/19 16:54 Notes: 19-year-old female presents with worsening left thumb pain/swelling. Patient was seen in ER yesterday and was diagnosed with cellulitis of her left thumb. Area was marked with surgical marker and patient was told to return if it worsened or extended beyond the marking. While patient was in ER Ortho, Dr. Wood, was consulted who recommended IV Unasyn and discharge with Augmentin with strict return precautions. Patient states she has taken 2 doses of Augmentin, one last night and one this morning. Patient states it started to worsen over the last couple hours. Patient denies any fever. Patient states yesterday she was able to move her DIP but now states it hurts to even move that. Patient's tetanus is up-to-date. Patient denies any cat scratches to that particular hand or any other known injuries. TRAVEL OUTSIDE OF THE [place] IN LAST 30 DAYS: No - Related Data Allergies/Adverse Reactions: No Known Allergies Allergy (Verified 11/27/19 12:57) Past Medical History - Social History Smoking Status: Unknown if Ever Smoked Family History: None Patient has suicidal ideation: No Patient has homicidal ideation: No Renal/ Medical History: Reports: Hx Ovarian Cysts Psychiatric Medical History: Reports: Hx Attention Deficit Hyperactivity Disorder - Immunizations Immunizations up to date: Yes Hx Diphtheria, Pertussis, Tetanus Vaccination: Yes Review of Systems - Review of Systems Notes: Constitutional: Negative for fever. HENT: Negative for sore throat. Eyes: Negative for visual changes. Cardiovascular: Negative for chest pain. Respiratory: Negative for shortness of breath. Gastrointestinal: Negative for abdominal pain, vomiting or diarrhea. Genitourinary: Negative for dysuria. Musculoskeletal: Positive for left thumb pain/swelling. Negative for back pain. Skin: Negative for rash. Neurological: Negative for headaches, weakness or numbness. 10 point ROS negative except as marked above and in HPI. Physical Exam - Vital signs Vitals: Temp Pulse Resp BP Pulse Ox 98.3 F 85 16 134/81 H 97 11/28/19 16:33 11/28/19 16:33 11/28/19 16:33 11/28/19 16:33 11/28/19 16:33 - Notes Notes: GENERAL: Well-appearing, well-nourished and in no acute distress. HEAD: Atraumatic, normocephalic. EYES: Extraocular movements intact, sclera anicteric, conjunctiva are normal. NECK: Normal range of motion, supple without lymphadenopathy or JVD. EXTREMITIES: No clubbing or cyanosis. LEFT THUMB: swelling noted, erythema extends beyond markings distally and laterally, tenderness, pt will not allow movement of PIP and has pain upon movement of DIP NEUROLOGICAL: Cranial nerves II through XII grossly intact. Normal speech, normal gait. PSYCH: Normal mood, normal affect. SKIN: Warm, Dry, normal turgor, no rashes or lesions noted. Course - Re-evaluation Re-evalutation: 11/28/19 19-year-old female presents with worsening left thumb cellulitis. Patient was seen yesterday and Ortho was consulted recommended IV Unasyn and Augmentin with strict return precautions. Patient states the redness has extended beyond the markings that were placed yesterday. Patient states she received IV Unasyn and has taken 2 doses of her Augmentin. Lab work was ordered out in triage including Unasyn IVP. 11/28/19 18:[address] Wood who states to admit to his service and will see her tomorrow. Requests vancomycin and zosyn overnight. Requests medical floor. 11/28/19 18:39 Reviewed [employer]. Recommends for skin and soft tissue infections, vancomycin 15-20 mg/kg/dose every 12 hours (max 2 gm/dose) and Zosyn 3.375 gm every [address] Richard Johnson. Ordered. - Vital Signs Vital signs: Temp Pulse Resp BP Pulse Ox 98.3 F 85 16 134/81 H 97 11/28/19 16:33 11/28/19 16:33 11/28/19 16:33 11/28/19 16:33 11/28/19 16:33 - Laboratory Result Diagrams: 11/28/19 17:21 11/28/19 17:21 Laboratory results interpreted by me: 11/28/19 11/28/19 17:21 17:21 MCV 76 L MCH 26.0 L Chloride 108 H Discharge - Discharge Clinical Impression: Cellulitis of left thumb Condition: Stable Disposition: ADMITTED OBSERVATION Admitting Provider: Dr. Jefferson Wood Unit Admitted: Medical Floor
[2019-11-28] MEDS ORDERED: VANCOMYCIN HCL INJ 1000 MG VIAL IV ONE ×2 (18:20→18:30)
[2019-11-28] MEDS ORDERED: PIPERACILLIN/TAZOBACTAM 3.375 GM VIAL IV ONE (18:20)
[2019-11-28] MEDS ORDERED: DIPHENHYDRAMINE HCL 50 MG/ML VIAL IV ONE (18:31)
[2019-11-28] MEDS ORDERED: ONDANSETRON HCL INJ/PF 4 MG/2 ML SDV IV ONE (18:31)
[2019-11-28] MEDS ORDERED: HYDROCODONE/ACETAMINOPHEN 5-325 MG TABLET PO PRN ×2 (18:46→20:00)
[2019-11-28] MEDS ORDERED: VANCOMYCIN HCL INJ 1000 MG VIAL IV PRN (19:10)
[2019-11-28] MEDS ORDERED: PIPERACILLIN/TAZOBACTAM 3.375 GM VIAL IV PRN (19:10)
[2019-11-28] MEDS ORDERED: HYDROCODONE/ACETAMINOPHEN 10-325 MG TABLET PO PRN (19:55)
[2019-11-28] MEDS: VANCOMYCIN HCL 2,000 MG in DEXTROSE 5%-WATER 500 ML IV SCH (21:17)
[2019-11-28] MEDS: PIPERACILLIN SODIUM/TAZOBACTAM 3.375 GM in NORMAL SALINE 100 ML IV SCH (21:18)
[2019-11-28] MEDS ORDERED: MAG HYDROX/AL HYDROX/SIMETH SUSP 30 ML UDCUP PO PRN (22:58)
[2019-11-28] MEDS ORDERED: ACETAMINOPHEN 325 MG TABLET PO PRN (22:58)
[2019-11-28] MEDS ORDERED: MORPHINE SULFATE 10 MG/ML INJ IV PRN (22:58)
[2019-11-28] MEDS ORDERED: ONDANSETRON 4 MG TAB.RAPDIS PO PRN (22:58)
[2019-11-28] MEDS: OXYCODONE-ACETAMINOPHEN 5-325 MG TABLET PO PRN (23:51)
[2019-11-28] MEDS ORDERED: DIPHENHYDRAMINE HCL 50 MG/ML VIAL ONE (23:58)
[2019-11-29] MEDS: ZOLPIDEM TARTRATE 5 MG TABLET PO PRN
[2019-11-29] MEDS: PIPERACILLIN SODIUM/TAZOBACTAM 3.375 GM in NORMAL SALINE 100 ML IV SCH ×3 (05:38→21:09)
--- NOTE | 2019-11-29 07:01 | PDOC H&P ---
History of Present Illness Admission Date/PCP: 11/28/19 22:58 ELIJAH SEGOVIA MD History of Present Illness: WHITNEY SINGLETON is a 19 year old female who presented overnight with left thumb pain and swelling. The patient was seen in the emergency department the day before with erythema and swelling of her left thumb, she was provided with 1 dose of Unasyn and sent home on Augmentin. However over the course of the next day the erythema and swelling progressed and became more diffuse and more painful. She returned to the emergency department last night and was found to have increased redness as compared to prior skin markings. At that time the decision was made to admit and provide IV antibiotics. She denies skin injury to that area. She does report having a new kitten that has scratched her in the past however there is no apparent scratches on her thumb at this time. At this point her redness has been present for approximately 4 days. Pain is aching and burning in nature, 6 out of 10, worse with motion, improved with rest and pain medication. Past Medical History Medical History: None Cardiac Medical History: Reports: None Psychiatric Medical History: Reports: Attention Deficit Hyperactivity Disorder Past Surgical History Past Surgical History: Reports: None Social History Smoking Status: Never Smoker Frequency of Alcohol Use: None Hx Recreational Drug Use: No Drugs: None Family History Family History: None Parental Family History Reviewed: No Children Family History Reviewed: NA Sibling(s) Family History Reviewed.: NA Medication/Allergy Home Medications: Cephalexin Monohydrate [Keflex 500 mg Capsule] 500 mg PO QID #20 capsule 06/09/12 Hydrocodone Bit/Acetaminophen [Vicodin 5-500 mg Tablet] 1 - 2 tab PO ASDIR PRN #15 tablet 06/09/12 Amoxicillin 1 tab PO TID #30 tab 10/11/19 Prednisone [Deltasone 20 mg Tablet] 1 tab PO BID 5 Days #10 tablet 10/11/19 Hydrocodone/Acetaminophen [[place] 5-325 mg Tablet] 1 - 2 tab PO ASDIR PRN #12 tablet 11/22/19 Ibuprofen [Ibu] 800 mg PO TID PRN #30 tablet 11/22/19 Amox Tr/Potassium Clavulanate [Augmentin 875-125 Tablet] 1 tab PO BID 10 Days tablet 11/27/19 Allergies/Adverse Reactions: morphine Allergy (Verified 01/11/20 23:56) Review of Systems Review of Systems: Constitutional: ABSENT: anorexia, chills, night sweats Cardiovascular: ABSENT: chest pain Respiratory: ABSENT: dyspnea Gastrointestinal: ABSENT: vomiting Genitourinary: ABSENT: dysuria Integumentary: ABSENT: rash Neurological: ABSENT: confusion, memory loss, numbness Psychiatric: ABSENT: hallucinations Hematologic/Lymphatic: ABSENT: easy bleeding All negative as above aside from that reported in the HPI Physical Exam Vital Signs: Temp Pulse Resp BP Pulse Ox 98.3 F 91 17 126/69 H 100 11/29/19 00:31 11/29/19 00:31 11/29/19 00:31 11/29/19 00:31 11/29/19 00:31 Intake & Output 11/27/19 11/28/19 11/29/19 06:59 06:59 06:59 Intake Total 100 Balance 100 Weight 110.7 kg Physical Exam: General appearance: PRESENT: no acute distress, cooperative, well-nourished Head exam: PRESENT: atraumatic, normocephalic Eye exam: PRESENT: EOMI Ear exam: PRESENT: normal external ear exam Mouth exam: PRESENT: neck supple Neck exam: ABSENT: tracheal deviation Respiratory exam: PRESENT: symmetrical, unlabored. ABSENT: accessory muscle use, wheezes Pulses: PRESENT: normal radial pulses, normal dorsalis pedis pulse Vascular exam: PRESENT: normal capillary refill GI/Abdominal exam: ABSENT: distended, firm Extremities exam: PRESENT: full ROM of bilateral shoulders, elbows wrists, knees, hips and ankles without pain Musculoskeletal exam: PRESENT: full ROM, normal inspection of all 4 extremities aside from that noted below. Neurological exam: PRESENT: alert, awake, oriented to person, oriented to place, oriented to time Psychiatric exam: PRESENT: appropriate affect. ABSENT: agitated Focused psych exam: ABSENT: catatonic Skin exam: PRESENT: intact. ABSENT: dry All as above aside from that noted in the HPI and the following: Left upper extremity Upper extremity sensation grossly intact to radial median and ulnar nerve. upper extremity motor function grossly intact to radian median ulnar nerve AIN and PIN Pulses 2+, capillary refill less than 2 seconds No deformity noted full range of motion of the elbow shoulder wrist and fingers without pain aside from the first MCP joint Compartments soft, no tenderness to palpation skin intact The skin is marked areas of erythema. This appears to have resolved so from the markings last night. The patient reports some decrease swelling. She does have motion in both the MCP and DIP however she does have some pain with range of motion. There is no palpable fluctuance. There is no focal skin insult, puncture wound, abrasion or potential source of infection. Pain and redness is localized over the dorsal aspect of the first MCP Results Laboratory Results: 11/28/19 17:21 11/28/19 17:21 11/28/19 11/28/19 11/28/19 17:21 17: 17:21 WBC 8.5 RBC 5.06 Hgb 13.2 Hct 38.4 MCV 76 L MCH 26.0 L MCHC 34.3 RDW 14.0 Plt Count 266 Seg Neutrophils % 55.4 Sodium 140.8 Potassium 3.7 Chloride 108 H Carbon Dioxide 22 Anion Gap 11 BUN 11 Creatinine 0.81 Est GFR ( Amer) > 60 Glucose 85 Calcium 9.7 Total Bilirubin 0.4 AST 21 Alkaline Phosphatase 71 Total Protein 8.1 Albumin 4.4 Serum HCG, Qual NEGATIVE Assessment & Plan - Diagnosis (1) Cellulitis of left thumb Plan: -The patient is on vancomycin and Unasyn at this time for antibiotic coverage. There does seem to be improvement from her exam yesterday and she reports some improvement in symptoms. -We will continue to follow her improvement and if there is no considerable change tomorrow may consider MRI for further evaluation and potential surgical planning. -We will consult infectious disease for antibiotic recommendations -Continue regular diet -Encourage range of motion of the left hand wrist and thumb -Encourage out of bed, ambulation and SCDs for DVT prophylaxis
[2019-11-29] MEDS: OXYCODONE-ACETAMINOPHEN 5-325 MG TABLET PO PRN ×2 (07:45→19:58)
[2019-11-29] MEDS: DOCUSATE SODIUM 100 MG CAPSULE PO SCH (09:12)
[2019-11-29] MEDS: VANCOMYCIN HCL 2,000 MG in DEXTROSE 5%-WATER 500 ML IV SCH (10:38)
[2019-11-29] MEDS: DIPHENHYDRAMINE HCL 50 MG/ML VIAL IV PRN ×2 (11:14→17:21)
[2019-11-29] MEDS: VANCOMYCIN HCL 1,500 MG in DEXTROSE 5%-WATER 250 ML IV SCH ×2 (11:14→17:17)
[2019-11-30] MEDS: DIPHENHYDRAMINE HCL 50 MG/ML VIAL IV PRN ×2 (02:38→11:01)
[2019-11-30] MEDS: VANCOMYCIN HCL 1,500 MG in DEXTROSE 5%-WATER 250 ML IV SCH ×3 (02:38→17:25)
[2019-11-30] MEDS: PIPERACILLIN SODIUM/TAZOBACTAM 3.375 GM in NORMAL SALINE 100 ML IV SCH ×2 (06:01→14:05)
--- NOTE | 2019-11-30 08:04 | PDOC PROGRESS REPORT ---
Subjective Progress Note for:: 11/30/19 Subjective:: Patient is doing well today. She does report improvement this morning and pain and ability to move however the first MCP joint is still painful to range and the area of erythema is still localized over this focal site Reason For Visit: CELLULITIS Physical Exam Vital Signs: Temp Pulse Resp BP Pulse Ox 99.3 F 88 17 130/74 H 97 11/29/19 23:25 11/29/19 23:25 11/29/19 23:25 11/29/19 23:25 11/29/19 23:25 Intake & Output 11/29/19 11/30/19 12/01/19 06:59 06:59 06:59 Intake Total 100 1890 Balance 100 1890 Weight 110.7 kg 112.9 kg Physical Exam: General appearance: PRESENT: no acute distress, cooperative, well-nourished Head exam: PRESENT: atraumatic, normocephalic Eye exam: PRESENT: EOMI Ear exam: PRESENT: normal external ear exam Mouth exam: PRESENT: neck supple Neck exam: ABSENT: tracheal deviation Respiratory exam: PRESENT: symmetrical, unlabored. ABSENT: accessory muscle use, wheezes Pulses: PRESENT: normal radial pulses, normal dorsalis pedis pulse Vascular exam: PRESENT: normal capillary refill GI/Abdominal exam: ABSENT: distended, firm Extremities exam: PRESENT: full ROM of bilateral shoulders, elbows wrists, knees, hips and ankles without pain Musculoskeletal exam: PRESENT: full ROM, normal inspection of all 4 extremities aside from that noted below. Neurological exam: PRESENT: alert, awake, oriented to person, oriented to place, oriented to time Psychiatric exam: PRESENT: appropriate affect. ABSENT: agitated Focused psych exam: ABSENT: catatonic Skin exam: PRESENT: intact. ABSENT: dry All as above aside from that noted in the HPI and the following: Left upper extremity Upper extremity sensation grossly intact to radial median and ulnar nerve. upper extremity motor function grossly intact to radian median ulnar nerve AIN and PIN Pulses 2+, capillary refill less than 2 seconds No deformity noted full range of motion of the elbow shoulder wrist and fingers without pain aside from the first MCP joint Compartments soft, no tenderness to palpation skin intact The skin is marked areas of erythema. Some continual improvement. The patient reports some decrease swelling. She does have motion in both the MCP and DIP however pain with range of motion of the MCP is not improved. There is no palpable fluctuance. There is no focal skin insult, puncture wound, abrasion or potential source of infection. Pain and redness is localized over the dorsal aspect of the first MCP Results Laboratory Results: 11/28/19 17:21 11/28/19 17:21 Assessment & Plan - Diagnosis (1) Cellulitis of left thumb Is this a current diagnosis for this admission?: Yes Plan: We will continue with current antibiotics -Infectious disease consult pending to determine further antibiotic recommendations -Will order MRI for evaluation of abscess versus intra-articular arthritis of the first MCP -Depending on results of MRI may consider I&D tomorrow. -Make n.p.o. tonight. -Encourage range of motion of the hand, continue current pain control -She will need to be made inpatient due to failure to adequately improve on her current antibiotic regimen and the potential for deep abscess - Time Time Spent with patient: Less than 15 minutes
[2019-11-30] MEDS: DOCUSATE SODIUM 100 MG CAPSULE PO SCH (10:54)
[2019-11-30 11:17] LABS: PROTHROMBIN TIME 13.2 SEC (11.4-15.4)
[2019-11-30] MEDS ORDERED: ONDANSETRON 4 MG TAB.RAPDIS PO PRN (11:30)
--- NOTE | 2019-11-30 14:21 | RADIOLOGY REPORT (SQ) ---
EXAM DESCRIPTION: MRI LT UPPER EXTREMITY WITHOUT COMPLETED DATE/TIME: 11/30/2019 10:17 am REASON FOR STUDY: Left hand abscess versus first MCP septic arthriti COMPARISON: Radiographs recently. TECHNIQUE: Multiplanar imaging of the left hand to include fat and fluid sensitive sequences. LIMITATIONS: None. FINDINGS: BONE MARROW: No evidence of marrow edema or fracture or worrisome bone lesion. SOFT TISSUES: Mild fluid in the thumb MCP joint with deep soft tissue edema but no drainable collecti ons otherwise pre OTHER: No other significant finding. IMPRESSION: 1. Mild joint effusion in the thumb MCP joint. 2. Mild regional cellulitis suspected. No drainable fluid collections otherwise appreciated. TECHNICAL DOCUMENTATION: JOB ID: [id number] [employer]- All Rights Reserved Reading location - IP/workstation name: [email or web address]
--- NOTE | 2019-11-30 17:34 | Progress Note ---
Provider Note Provider Note: ID Telephone Consultation Note Asked to review patient's chart by Pharmacy. Pt not seen or examined. Pt is a 19-year-old obese woman who was admitted with c/o L thumb pain, swelling and redness over the past few days without known injury. Pt did not recall being bitten by anything or having a break in the skin. She was seen on 11/27/19 with this problem in the ED and reported having a kitten that has been scratching both of her hands. She was given IV Unasyn in the ED then prescribed PO Augmentin to go home with. She returned the next day wiht increase in erythema. Multiple abrasions were noted to bilateral hands. Upon return to the ED, repeat blood cultures were ordered (11/27 BCx two sets negative, additional collection on 11/28/19 also negative to date), and broad spectrum antibiotics vancomycin and Zosyn were started. Per most recent progress notes, pt reported improvement in pain and ability to move MCP. On exam, the patient was noted to have some improvement in erythema, pain and swelling centered abou the dorsal aspect of the 1st MCP, limited motion of the MCP, no palpable fluctuance, and no focal skin insult at the site such as pucture wound or abrasion. MRI was ordered to evaluate further; read is pending. Impression/Recommendations skin/soft tissue infection of the L thumb - IV Unasyn is appropriate given hx of pt having a kitten that has caused abrasions to the hand. Antipseudomonal activity of Zosyn not required. Would change this. Can continue vancomycin for now. - Question of cat scratch (Bartonella henselae) can be raised with her history, but cellulitis is not typical of this. Would think of it if there is a papular, pustular or vesicular lesion on the hand and febrile lymphadenitis involving the proximal lymph nodes in the axilla or epitrochlear nodes. - f/u MRI results Ochoa Manzanares MD [facility] Infectious Diseases pager [phone]
[2019-11-30] MEDS ORDERED: AMPICILLIN SOD/SULBACTAM 3 GM VIAL IV SCH (18:45)
[2019-11-30] MEDS ORDERED: DEXTROSE 40% GEL 15 GM TUBE PO PRN ×2 (18:56)
[2019-11-30] MEDS ORDERED: DEXTROSE 50%-WATER 25 GM/50 ML DISP.SYRIN IV PRN ×2 (18:56)
[2019-11-30] MEDS ORDERED: GLUCAGON,HUMAN RECOMB 1 MG INJ SUBCUT PRN (18:56)
[2019-11-30] MEDS: OXYCODONE-ACETAMINOPHEN 5-325 MG TABLET PO PRN (19:13)
[2019-12-01] MEDS: AMPICILLIN SODIUM/SULBACTAM NA 3 GM in NORMAL SALINE 100 ML IV SCH ×5 (00:19→23:26)
[2019-12-01] MEDS: VANCOMYCIN HCL 1,500 MG in DEXTROSE 5%-WATER 250 ML IV SCH ×3 (02:05→18:48)
[2019-12-01] MEDS: DIPHENHYDRAMINE HCL 50 MG/ML VIAL IV PRN ×2 (02:10→22:21)
--- NOTE | 2019-12-01 07:25 | PDOC PROGRESS REPORT ---
Subjective Progress Note for:: 12/01/19 Subjective:: Patient is doing well this morning. Reports considerable improvement both in erythema eye pain and inability to move her thumb. She still has some pain motion of the thumb that is localized to the dorsal aspect of the thumb but palpation elsewhere is without pain. No new signs or symptoms overnight. Reason For Visit: CELLULITIS Physical Exam Vital Signs: Temp Pulse Resp BP Pulse Ox 98.1 F 69 17 120/59 L 100 12/01/19 00:00 12/01/19 00:00 12/01/19 00:00 12/01/19 00:00 12/01/19 00:00 Intake & Output 11/30/19 12/01/19 12/02/19 06:59 06:59 06:59 Intake Total 1889 1922 Balance 1889 1922 Weight 112.9 kg 110.6 kg Physical Exam: Left upper extremity Upper extremity sensation grossly intact to radial median and ulnar nerve. upper extremity motor function grossly intact to radian median ulnar nerve AIN and PIN Pulses 2+, capillary refill less than 2 seconds No deformity noted full range of motion of the elbow shoulder wrist and fingers without pain aside from the first MCP joint Compartments soft, no tenderness to palpation skin intact considerable improvement overnight, decrease swelling. marked improvement in swelling about the first MCP, range of motion, and pain with range of motion of the first MCP joint. There is no palpable fluctuance. Results Laboratory Results: 11/28/19 17:21 11/30/19 10:52 11/30/19 11/30/19 10:52 10:52 Creatinine 0.94 Est GFR ( Amer) > 60 C-Reactive Protein 25.9 H Impressions: Upper Extremity MRI 11/30/19 00:00 IMPRESSION: 1. Mild joint effusion in the thumb MCP joint. 2. Mild regional cellulitis suspected. No drainable fluid collections otherwise appreciated. Assessment & Plan - Diagnosis (1) Cellulitis of left thumb Is this a current diagnosis for this admission?: Yes Plan: -MRI failed to identify a drainable abscess, there is a small joint effusion however this could be reactive given the overall swelling. -Given the marked improvement overnight we will hold consideration for surgery for now. Patient will receive a diet this morning and we will reevaluate tomorrow. -Comfort with range of motion of the first MCP makes septic arthritis very unlikely -Awaiting final recommendations for antibiotics from infectious disease. - Time Time Spent with patient: Less than 15 minutes
[2019-12-01] MEDS: DOCUSATE SODIUM 100 MG CAPSULE PO SCH (09:09)
--- NOTE | 2019-12-01 14:52 | Progress Note ---
Provider Note Provider Note: ID Telephone Consultation - Follow Up Note Per recent notes, pt has had improvement in both erythema and pain about the thumb. The MRI of the hand did not reveal any abscess or other drainable fluid collection. A small amount of fluid was seen at the joint that has been felt by her Orthopedic Surgeon to be quite possibly reactive given the overall swelling that was present and the improvement in ROM. Blood cultures remain negative. No culture is available from the hand. Impression/Recommendations For skin/soft tissue infection involving the hand, plan for Unasyn alone as an inpatient with transition back to Augmentin when ready for hospital discharge. Anti-MRSA activity from vancomycin should be discontinued in light of the lack of a purulent focus and lack of positive cultures demonstrating the organism or other laboratory support. Pt's lack of initial improvement with a day of Augmentin prior to admission is not unexpected and does not necessarily indicate treatment failure or inappropriate spectrum of coverage. Often times cellulitis will appear to worsen initially with lysis of bacteria and increased inflammation in response to the released antigens before stabilizing and then improving. Duration of therapy - similar to other soft tissue infections, this could range from 5-14 days, depending on rapidity of response. Can consider aiming for a total of 7-10 days if progressing as expected. Ochoa Manzanares MD [facility] Infectious Diseases pager [phone]
[2019-12-01] MEDS: OXYCODONE-ACETAMINOPHEN 5-325 MG TABLET PO PRN (20:23)
[2019-12-01] MEDS: ZOLPIDEM TARTRATE 5 MG TABLET PO PRN (23:26)
[2019-12-02] MEDS: VANCOMYCIN HCL 1,500 MG in DEXTROSE 5%-WATER 250 ML IV SCH ×2 (02:00→09:16)
[2019-12-02] MEDS: AMPICILLIN SODIUM/SULBACTAM NA 3 GM in NORMAL SALINE 100 ML IV SCH (05:40)
[2019-12-02] MEDS: DOCUSATE SODIUM 100 MG CAPSULE PO SCH (09:15)
--- NOTE | 2019-12-02 10:39 | PDOC PROGRESS REPORT ---
Subjective Progress Note for:: 12/02/19 Subjective:: She continues to progress well. She looks much better today than she did on admission and even improved from yesterday. She reports continued improvement in her range of motion and pain in her left thumb Reason For Visit: CELLULITIS Physical Exam Vital Signs: Temp Pulse Resp BP Pulse Ox 98.4 F 71 17 123/65 98 12/02/19 08:00 12/02/19 08:00 12/02/19 08:00 12/02/19 08:00 12/02/19 08:00 Intake & Output 12/01/19 12/02/19 12/03/19 06:59 06:59 06:59 Intake Total 1922 1844 100 Balance 1922 1844 100 Weight 110.6 kg 110.3 kg Physical Exam: Left upper extremity Upper extremity sensation grossly intact to radial median and ulnar nerve. upper extremity motor function grossly intact to radian median ulnar nerve AIN and PIN Pulses 2+, capillary refill less than 2 seconds No deformity noted full range of motion of the elbow shoulder wrist and fingers without pain aside from the first MCP joint Compartments soft, no tenderness to palpation skin intact continued improvement overnight, decrease swelling. continued improvement in swelling about the first MCP, range of motion, and pain with range of motion of the first MCP joint. There is no palpable fluctuance. Results Laboratory Results: 11/28/19 17:21 11/30/19 10:52 Impressions: Upper Extremity MRI 11/30/19 00:00 IMPRESSION: 1. Mild joint effusion in the thumb MCP joint. 2. Mild regional cellulitis suspected. No drainable fluid collections otherwise appreciated. Assessment & Plan - Diagnosis (1) Cellulitis of left thumb Is this a current diagnosis for this admission?: Yes Plan: -Due to continued improvement and unlikely deep abscess or septic arthritis the patient is stable for discharge home on final recommendations as per infectious disease. -A prescription has been written for Augmentin she has been counseled on how to take this and the need for doing so appropriately over the next 10 days. She is in agreement with this plan and understands that if there is any progression in her symptoms or new onset fluctuance, drainage, or increased erythema, increased fever, she is to follow-up immediately with myself in the office or in the emergency department. She also understands that this will take some continued time to slowly improve. -Encourage daily range of motion of the thumb and hand -She is to follow-up with me in the office in approximately 2 weeks - Time Time Spent with patient: Less than 15 minutes
[2019-12-02 13:02] VITALS: BP 103/55
[2019-12-02] MEDS ORDERED: AMOXICILLIN TR/POT CLAVULANATE 500-125 MG TAB PO SCH (14:00)
--- NOTE | 2019-12-05 07:33 | PDOC DISCHARGE SUMMARY ---
Impression - Admit/DC Date/PCP Admission Date/Primary Care Provider: 12/01/19 12:35 ELIJAH SEGOVIA MD Discharge Date: 12/05/19 - Discharge Diagnosis (1) Cellulitis of left thumb Is this a current diagnosis for this admission?: Yes - Assessment Summary: The patient was admitted to the hospital after developing a left thumb cellulitis that had worsened since her initial visit to the emergency department and discharged home. Upon return she was concerned due to increased erythema with progression across the dorsum of her hand, increased swelling, and pain with range of motion of the thumb. Due to failure of 1 days worth of antibiotics she was admitted to the hospital for IV antibiotic treatment. Over the course of her stay she was placed on Vanco and Zosyn which was later changed to Unasyn as per the recommendations of infectious disease who were consulted on her case. Finally after continued improvement she was transitioned to Augmentin p.o. for home use. Over the course of her stay she responded well and her erythema resolved as well as the improvement in range of motion of her thumb. We did get an MRI to see if there is any surgical need for drainage of abscess or I&D of the first MCP joint however this did not show a considerable amount of articular fluid or a soft tissue fluid collection. She had no acute events or complication of the course of her stay. She was discharged home in stable condition. - Additional Information Resuscitation Status: Full Code Discharge Diet: As Tolerated Discharge Activity: Activity As Tolerated Referrals: YOAV STEPHEN JR, DO [ACTIVE PROVISIONAL STAFF] - (CALL OFFICE OR GO TO EMERGENCY ROOM IF ANY INCREASED SYMPTOMS.) Prescriptions: Amox Tr/Potassium Clavulanate [Augmentin "500" Tablet] 1 tab PO Q8 10 Days tablet Home Medications: Acetaminophen [Tylenol 325 mg Tablet] 650 mg PO Q4HP PRN tablet 12/02/19 Amox Tr/Potassium Clavulanate [Augmentin "500" Tablet] 1 tab PO Q8 10 Days tablet 12/02/19 Diphenhydramine HCl [Benadryl Inj 50 mg/1 ml Vial] 50 mg IV Q6HP PRN vial 12/02/19 Oxycodone HCl/Acetaminophen [Percocet 5-325 mg Tablet] 1 tab PO Q4HP PRN tablet 12/02/19 History of Present Illiness History of Present Illness: WHITNEY SINGLETON is a 19 year old female who presented overnight with left thumb pain and swelling. The patient was seen in the emergency department the day before with erythema and swelling of her left thumb, she was provided with 1 dose of Unasyn and sent home on Augmentin. However over the course of the next day the erythema and swelling progressed and became more diffuse and more painful. She returned to the emergency department last night and was found to have increased redness as compared to prior skin markings. At that time the decision was made to admit and provide IV antibiotics. She denies skin injury to that area. She does report having a new kitten that has scratched her in the past however there is no apparent scratches on her thumb at this time. At this point her redness has been present for approximately 4 days. Pain is aching and burning in nature, 6 out of 10, worse with motion, improved with rest and pain medication. Physical Exam Vital Signs: Temp Pulse Resp BP Pulse Ox 98.7 F 92 17 103/55 L 98 12/02/19 12:00 12/02/19 12:00 12/02/19 12:00 12/02/19 12:00 12/02/19 12:00 Results Laboratory Results: WBC 8.5 10^3/uL (4.0-10.5) 11/28/19: RBC 5.06 10^6/uL (3.72-5.28) 11/28/19 17: Hgb 13.2 g/dL (12.0-15.5) 11/28/19 17: Hct 38.4 % (36.0-47.0) 11/28/19: MCV 76 fl (80-97) L 11/28/19 17: MCH 26.0 pg (27.0-33.4) L 11/28/19: MCHC 34.3 g/dL (32.0-36.0) 11/28/19: RDW 14.0 % (11.5-14.0) 11/28/19 17: Plt Count 266 10^3/uL (150-450) 11/28/19 17: Lymph % (Auto) 32.0 % (13-45) 11/28/19: Stanley % (Auto) 10.7 % (3-13) 11/28/19 17:21 Eos % (Auto) 1.5 % (0-6) 11/28/19 17:21 Baso % (Auto) 0.4 % (0-2) 11/28/19 17:21 Absolute Neuts (auto) 4.7 10^3/uL (1.7-8.2) 11/28/19 17:21 Absolute Lymphs (auto) 2.7 10^3/uL (0.5-4.7) 11/28/19 17:21 Absolute Monos (auto) 0.9 10^3/uL (0.1-1.4) 11/28/19 17: Absolute Eos (auto) 0.1 10^3/uL (0.0-0.6) 11/28/19 17: Absolute Basos (auto) 0.0 10^3/uL (0.0-0.2) 11/28/19 17: Seg Neutrophils % 55.4 % (42-78) 11/28/19 17:21 PT 13.2 SEC (11.4-15.4) 11/30/19 10:52 INR 1.00 11/30/19 10:52 Sodium 140.8 mmol/L (137-145) 11/28/19 17:21 Potassium 3.7 mmol/L (3.6-5.0) 11/28/19 17:21 Chloride 108 mmol/L (98-107) H 11/28/19 17:21 Carbon Dioxide 22 mmol/L (22-30) 11/28/19 17:21 Anion Gap 11 (5-19) 11/28/19 17:21 BUN 11 mg/dL (7-20) 11/28/19 17:21 Creatinine 0.94 mg/dL (0.52-1.25) 11/30/19 10:52 Est GFR ( Amer) > 60 (>60) 11/30/19 10:52 Est GFR (MDRD) Non-Af > 60 (>60) 11/30/19 10:52 Glucose 85 mg/dL (75-110) 11/28/19 17:21 Calcium 9.7 mg/dL (8.4-10.2) 11/28/19 17:21 Total Bilirubin 0.4 mg/dL (0.2-1.3) 11/28/19 17:21 Direct Bilirubin 0.2 mg/dL (0.0-0.4) 11/28/19 17:21 Neonat Total Bilirubin Not Reportable 11/28/19 17:21 Neonat Direct Bilirubin Not Reportable 11/28/19 17:21 Neonat Indirect Bili Not Reportable 11/28/19 17:21 AST 21 U/L (14-36) 11/28/19 17:21 ALT 14 U/L (<35) 11/28/19 17:21 Alkaline Phosphatase 71 U/L (38-126) 11/28/19 17:21 C-Reactive Protein 25.9 mg/L (<10.0) H 11/30/19 10:52 Total Protein 8.1 g/dL (6.3-8.2) 11/28/19 17:21 Albumin 4.4 g/dL (3.5-5.0) 11/28/19 17:21 Serum HCG, Qual NEGATIVE (NEGATIVE) 11/28/19 17:21 Time Trough Drawn 1052 11/30/19 10:52 Vancomycin Trough 15.0 ug/mL (5.0-20.0) 11/30/19 10:52 Impressions: Upper Extremity MRI 11/30/19 00:00 IMPRESSION: 1. Mild joint effusion in the thumb MCP joint. 2. Mild regional cellulitis suspected. No drainable fluid collections otherwise appreciated. Stroke Is this a Stroke Patient?: No Acute Heart Failure - Is this a Heart Failure Patient?: No
== END 2019-12-02 15:44 | disposition home or self-care (01) | DRG 603 ==
LOC: ER 16:20 → EH 18:26 → 5 20:04 → INTOOBSV 22:58 → OBSVTOIN 22:58
PROVIDERS: ADMIT Orthopaedic Surgery; ATTEND Orthopaedic Surgery
DX: L03.012 Cellulitis of left finger (principal); Z79.899 Other long term (current) drug therapy; Z88.6 Allergy status to analgesic agent
CPT/HCPCS: 36415; 80053; 80202; 82565; 84703; 85025; 85610; 86140; 87040; 96365; 96375; 99284; G0378; J0295; J1200; J2270; J2405; J2543; J3370; J7050; J7060; S0119

== ENCOUNTER 2020-06-15 17:38 | Emergency (ER) | payer SELFPAY ==
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
[2020-06-15 20:28] LABS: AMORPHOUS SEDIMENT,URINE TRACE /HPF; APPEARANCE,URINE SLIGHTLY-CLOUDY; BILIRUBIN,URINE NEGATIVE (NEGATIVE); COLOR,URINE YELLOW; GLUCOSE, URINE NEGATIVE (NEGATIVE); KETONES,URINE NEGATIVE (NEGATIVE); LEUKOCYTE ESTERASE,URINE TRACE (NEGATIVE); NITRITE,URINE NEGATIVE (NEGATIVE); PROTEIN,URINE NEGATIVE (NEGATIVE); URINE SPECIFIC GRAVITY 1.014; UROBILINOGEN,URINE NEGATIVE mg/dL (<2.0)
--- NOTE | 2020-06-15 21:14 | RADIOLOGY REPORT (SQ) ---
CT HEAD WITHOUT IV CONTRAST HISTORY: Chronic neck pain. COMPARISON: None. TECHNIQUE: CT scan of the brain was performed without IV contrast. This exam was performed according to our departmental dose-optimization program, which includes automated exposure control, adjustment of the mA and/or kV according to patient size and/or use of iterative reconstruction technique. FINDINGS: The ventricles, cisterns, and sulci are age-appropriate. No evidence of acute infarction, intracranial hemorrhage, extra-axial fluid collection, or midline shift. There is a retention cyst in the right maxillary sinus. No depressed skull fracture. IMPRESSION: No acute intracranial findings.
--- NOTE | 2020-06-15 21:15 | RADIOLOGY REPORT (SQ) ---
CT CERVICAL SPINE: 06/15/2020 8:12 PM CDT TECHNIQUE: Axial contiguous images were obtained through the cervical spine without intravenous contrast. Sagittal and coronal reconstructions were also reviewed. This exam was performed according to our departmental dose-optimization program, which includes automated exposure control, adjustment of the mA and/or KV according to the patient's size and/or use of iterative reconstruction technique. COMPARISON: None available INDICATION: 19-year old patient with neck pain, headache. FINDINGS: The vertebral bodies appear well aligned. The vertebral body heights appear well maintained. No significant pre-vertebral soft tissue swelling is noted. No definite fracture or subluxation is noted. No significant intervertebral disc space narrowing is seen. The visualized brain parenchyma appears unremarkable. The craniocervical junction is unremarkable. IMPRESSION: There are no findings to suggest an acute fracture or subluxation within the cervical spine.
[2020-06-15 21:51] VITALS: BP 126/78
[2020-06-15] MEDS ORDERED: PROCHLORPERAZINE MALEATE 10 MG TABLET PO ONE (22:07)
== END 2020-06-15 22:23 | disposition home or self-care (01) ==
LOC: ER 17:38
DX: G89.29 Other chronic pain (principal); M54.2 Cervicalgia; R51 Headache; R42 Dizziness and giddiness; Z88.6 Allergy status to analgesic agent
CPT/HCPCS: 99284; 81025; 81001; 70450; 72125; S0183

== ENCOUNTER 2020-09-02 16:08 | Emergency (ER) | payer MEDICAID ==
[2020-09-02] MEDS ORDERED: IBUPROFEN 800 MG TABLET ONE (16:32)
[2020-09-02] MEDS ORDERED: IBUPROFEN 800 MG TABLET PO ONE (16:33)
--- NOTE | 2020-09-02 16:38 | ER Document Report ---
ED Extremity Problem, Lower - General Chief Complaint: Ankle Injury Stated Complaint: FALL/ANKLE PAIN Time Seen by Provider: 09/02/20 16:25 Primary Care Provider: [facility] [[facility]] - [facility] 3[facility] - Follow up tomorrow Mode of Arrival: Medic Information source: Patient Notes: 19-year-old female presented to ED for complaint of pain and swelling to her right ankle. She states her son decided he wanted to walk out to the car and she wanted to carry him. She picked him up and when she went to step down he threw himself backwards causing them both to fall down the steps. She states she twisted and rolled her ankle as she fell. She does have some pain and swelling to the lateral aspect of the right ankle. She states she has fractured the same ankle in the past. She states she was not able to get up after they fell and the son was running around but her significant other came home and was able to grab the child while she called 911 to bring her to the emergency room. Constitutional: Negative for fever. HENT: Negative for sore throat. Eyes: Negative for visual changes. Cardiovascular: Negative for chest pain. Respiratory: Negative for shortness of breath. Gastrointestinal: Negative for abdominal pain, vomiting or diarrhea. Genitourinary: Negative for dysuria. Musculoskeletal: Pain swelling and unable to bear weight on the right foot or ankle. Patient is alert oriented respirations regular nonlabored speaking in full sentences. Skin: Negative for rash. Neurological: Negative for headaches, weakness or numbness. 10 point ROS negative except as marked above and in HPI. PHYSICAL EXAMINATION: GENERAL: Well-appearing, well-nourished and in no acute distress. HEAD: Atraumatic, normocephalic. EYES: Pupils equal round extraocular movements intact, conjunctiva are normal. ENT: Nares patent NECK: Normal range of motion LUNGS: No respiratory distress Musculoskeletal: Pain swelling lateral aspect of the right ankle tenderness to the ankle and foot patient unable to bear weight NEUROLOGICAL: Normal speech, unable to bear weight PSYCH: Normal mood, normal affect. SKIN: Warm, Dry, normal turgor, no rashes or lesions noted. TRAVEL OUTSIDE OF THE [place] IN LAST 30 DAYS: No - HPI Patient complains to provider of: Injury, Pain, Swelling Location: Ankle, Foot Occurred: Just prior to arrival Where: Home, Outdoors Onset/Duration: Persistent Quality of pain: Sharp, Throbbing Severity: Moderate Pain Level: 3 Context: Fell, Twisted Recent injury: Yes Associated symptoms: Painful ambulation Exacerbated by: Hanging down, Movement, Walking Relieved by: Nothing - Related Data Allergies/Adverse Reactions: kiwi Allergy (Verified 06/15/20 20:20) morphine Allergy (Verified 11/28/19 23:56) Past Medical History - General Information source: Patient - Social History Smoking Status: Never Smoker Frequency of alcohol use: None Drug Abuse: None Lives with: Family Family History: None, Reviewed & Not Pertinent Patient has homicidal ideation: No - Past Medical History Cardiac Medical History: Reports: None Pulmonary Medical History: Reports: None EENT Medical History: Reports: None Neurological Medical History: Reports: None Endocrine Medical History: Reports: None Renal/ Medical History: Reports: Hx Ovarian Cysts Malignancy Medical History: Reports: None GI Medical History: Reports: None Musculoskeletal Medical History: Reports Hx Musculoskeletal Trauma Skin Medical History: Reports None Psychiatric Medical History: Reports: Hx Attention Deficit Hyperactivity Disorder Traumatic Medical History: Reports: None Infectious Medical History: Reports: None Past Surgical History: Reports: Other - Nexplanon - Immunizations Immunizations up to date: Yes Hx Diphtheria, Pertussis, Tetanus Vaccination: Yes Physical Exam - Vital signs Vitals: Temp Pulse Resp BP Pulse Ox 98.8 F 106 H 20 132/86 H 97 09/02/20 16:14 09/02/20 16:14 09/02/20 16:14 09/02/20 16:14 09/02/20 16:14 Course - Re-evaluation Re-evalutation: 09/02/20 21:25 The patient is nontoxic appearing with stable vitals. They are afebrile. Ankle exam shows no deformities with no obvious ligament instability. There is a normal pulse and sensation distally. There is no redness or signs of infection. X-rays show no acute fracture per the radiologist. Patient will be placed in an Billy wrap for comfort. Crutches will be offered and given if requested. Patient will be instructed to follow-up with not better in 1 week, sooner for increasing pain, fever, redness, numbness, tingling, weakness, any further concerns. Patient will be instructed to rest, ice, elevate their ankle. - Vital Signs Vital signs: Temp Pulse Resp BP Pulse Ox 98.1 F 60 17 136/87 H 100 09/02/20 18:14 09/02/20 18:14 09/02/20 18:14 09/02/20 18:14 09/02/20 18:14 - Diagnostic Test Radiology reviewed: Image reviewed, Reports reviewed Procedures - Immobilization Right Ankle Time completed: 18:15 Immobilizer type: Billy wrap, Ankle stirrup, Crutches Performed by: Provider assisted, RN Post-Proc Neuro Vasc Exam: Normal Alignment checked and good: Yes Discharge - Discharge Clinical Impression: Sprain of ankle, right Qualifiers: Encounter type: initial encounter Involved ligament of ankle: unspecified ligament Qualified Code(s): S93.401A - Sprain of unspecified ligament of right ankle, initial encounter Condition: Stable Disposition: HOME, SELF-CARE Additional Instructions: SPRAINED ANKLE: Your sprained ankle results from stretching or tearing of the ligaments which support the ankle. This usually results from twisting the foot inward and under. The ligaments will require time and protection in order to heal properly. Many ankle sprains are quite disabling, and should be taken seriously. The usual treatment for an ankle sprain is cold packs; protection with tape, splints, or wraps; elevation; and staying off the ankle for at least a day. As the ankle improves, you can walk IF it's not painful to bear weight. Sports are best postponed until healing is complete. More serious sprains usually require strengthening exercises after early healing. Your physician has assessed the seriousness of the ligament injury to your ankle. However, the treatment may change, depending on how your ankle progresses. If further exams were recommended, it is important that you follow through. Call the doctor if your foot becomes numb, painful, or severely swollen. BILLY WRAP: A compression dressing (billy wrap) has been placed. This helps hold the area still. It limits swelling and internal bleeding. The wrap should be comfortably snug -- not tight. You should feel a sense of pressure, but not severe pain under the wrap. Unless the physician tells you otherwise, you can adjust the wrap for comfort. If the wrap causes symptoms suggesting it's too tight -- uncomfortable pressure, swelling or discoloration beyond the wrap, numbness, or severe pain -- you must loosen the wrap. If these symptoms don't resolve promptly, return for re-evaluation. ANKLE STIRRUP SPLINT: You are to use an ankle brace called a stirrup splint. This type of brace allows you to place greater stresses on the ankle without risk of re-injury, and is often used for more severe ankle injuries such as avulsion fractures and ligament ruptures. The splint can be worn over a sock or tape. For proper support, wear the splint with a shoe over it. It's important that the splint fit properly. Adjust the heel tension, if needed. If your splint has air bladders, peel back the bottom of each air bladder, then move the Velcro attachment of the heel strap up or down. Air bladder pressure can be adjusted by pulling up the valve at the top, threading the air tube down into the main bladder, then blowing air into the bladder or squeezing it out. The two sides of the stirrup can be moved forward or back on your ankle by changing the attachment of the main straps. If you are unable to use the ankle comfortably in the splint, return for re-evaluation. USE OF CRUTCHES: The doctor has recommended that you not bear weight at this time. You will need to use crutches. Adjust the crutches so the tops come to about two inches under the armpit while you are standing upright. Use your hands -- not your armpits -- to support your weight. To get into a chair, support yourself with one crutch on the injured side. Hold the chair with the other hand, then lower yourself while putting all your weight on the good leg. Going up stairs is `good leg up, step up, then bring up crutches and bad leg.' Down stairs is `bad leg and crutches down, then bring good leg down.' If you develop numbness or swelling in an arm or hand, you are using the crutches incorrectly. Return if you are having any problems with the crutches. ICE & ELEVATION: Apply ice packs frequently against the painful area. Many different schedules are recommended, such as "20 minutes on, 20 minutes off" or "one hour ice, two hours rest." If you need to work, you may need to go longer between ice treatments. You should plan to have the area ice packed AT LEAST one-fourth of the time. The ice should be applied over the wrap, tape, or splint, or over a layer of cloth -- not directly against the skin. Some ice bags have a built-in cloth and can be put directly on the skin. Your injured part should be elevated as much as possible over the next 48 hours. Try to keep the injury above the level of the heart. Avoid use of the injured area. Elevation and rest will decrease the swelling. USE OF [id number] IBUPROFEN: Ibuprofen (Advil, Nuprin, Medipren, Motrin IB) is a medication for fever and pain control. In addition, it has anti- inflammatory effects which may be beneficial, especially in the treatment of injuries. It's best to take ibuprofen with food. Persons with ulcer disease or allergy to aspirin should notify their physician of this before taking ibuprofen. Ibuprofen can be given every four to six hours, for a total of four doses daily. Age Pain or fever dose Antiinflammatory dose 6-8 yr 200 mg (1 tab) 200 mg (1 tab) 9-11 yr 200 mg (1 tab) 200-400 mg (1-2 tab) 11-14 yr 200-400 mg (1-2 tab) 400 mg (2 tab) 15-adult 400 mg (2 tab) 600 mg (3 tab) FOLLOW-UP CARE: If you have been referred to a physician for follow-up care, call the physicians office for an appointment as you were instructed or within the next two days. If you experience worsening or a significant change in your symptoms, notify the physician immediately or return to the Emergency Department at any time for re-evaluation. Forms: Special Work Note, Return to Work [facility]: [facility] [[facility] - Follow up [facility] [Provider Group] - Follow up in 3-5 days
--- NOTE | 2020-09-02 17:45 | RADIOLOGY REPORT (SQ) ---
EXAM DESCRIPTION: ANKLE RIGHT COMPLETE IMAGES COMPLETED DATE/TIME: 09/02/2020 5:29 pm REASON FOR STUDY: Pain and swelling after falling twisting her ankle COMPARISON: None. NUMBER OF VIEWS: Three views. TECHNIQUE: AP, lateral, and oblique radiographic images acquired of the right ankle. LIMITATIONS: None. FINDINGS: MINERALIZATION: Normal. BONES: No acute fracture or dislocation. No worrisome bone lesions. JOINTS: No effusions. SOFT TISSUES: Soft tissue swelling. OTHER: No other significant finding. IMPRESSION: Soft tissue swelling. No osseous abnormality. TECHNICAL DOCUMENTATION: JOB ID: [id number] 2010 [employer]- All Rights Reserved Reading location - IP/workstation name: [email or web address]
--- NOTE | 2020-09-02 17:46 | RADIOLOGY REPORT (SQ) ---
EXAM DESCRIPTION: FOOT RIGHT COMPLETE IMAGES COMPLETED DATE/TIME: 09/02/2020 5:29 pm REASON FOR STUDY: Pain and swelling after falling twisting her ankle COMPARISON: None. NUMBER OF VIEWS: Three views. TECHNIQUE: AP, lateral and oblique radiographic images acquired of the right foot. LIMITATIONS: None. FINDINGS: MINERALIZATION: Normal. BONES: No acute fracture or dislocation. No worrisome bone lesions. JOINTS: No effusions. SOFT TISSUES: No soft tissue swelling. No foreign body. OTHER: No other significant finding. IMPRESSION: NEGATIVE STUDY OF THE RIGHT FOOT. NO RADIOGRAPHIC EVIDENCE OF ACUTE INJURY. TECHNICAL DOCUMENTATION: JOB ID: [id number] 2010 [employer]- All Rights Reserved Reading location - IP/workstation name: [email or web address]
[2020-09-02 18:14] VITALS: BP 136/87
== END 2020-09-02 18:41 | disposition home or self-care (01) ==
LOC: ER 16:08
DX: S93.401A Sprain of unspecified ligament of right ankle, initial encounter (principal); W10.9XXA Fall (on) (from) unspecified stairs and steps, initial encounter; Y92.009 Unspecified place in unspecified non-institutional (private) residence as the place of occurrence of the external cause
CPT/HCPCS: 29515; 99282; 73610; 73630; J3490